=== PATIENT | male | born 1970 | race Caucasian/White ===

== ENCOUNTER 2019-12-20 17:00 | Emergency (ER) | payer OTHER ==
[2019-12-20 20:59] VITALS: BP 111/83; PULSE 80; TEMP 98.4; BMI 22.6
[2019-12-20] MEDS ORDERED: CLINDAMYCIN HCL 300 MG CAPSULE PO ONE (22:13)
[2019-12-20] MEDS ORDERED: CLINDAMYCIN HCL 150 MG CAPSULE (FP) ONE (22:14)
== END 2019-12-20 22:27 | disposition home or self-care (01) ==
LOC: FER 17:00
PROC: 0V95XZZ Drainage of Scrotum, External Approach (ICD-10-PCS; principal; 2019-12-20)
DX: N45.4 Abscess of epididymis or testis (principal)
CPT/HCPCS: 87070; 87205; 99284-25